=== PATIENT | male | born 1985 | race Caucasian/White ===

== ENCOUNTER 2016-04-24 13:03 | Emergency (ER) | payer OTHER ==
[~2016-04-24] VITALS: Ht 175.2 cm; Wt 90.7 kg
[~2016-04-24 13:03] MED LIST: 'PARAFON FORTE500 M1 PO; ALBUTEROL2.5 MG/0.5 INH; BIAXIN500 MG PO; CLARITIN10 MG PO; COMBIVENT1 ARO IH; DOXYCYCLINE MO100 MG PO; FLOVENT INH; Flovent 220 M220 MCG INH; HYDROCODONE BIT1 T11 PO; KEFLEX500 MG PO; MEDROL DOSEPAK4 MG PO; MOBIC15 MG PO; MOTRIN800 MG PO; MUCINEX600 MG PO; NAPROSYN500 MG PO; NEURONTIN100 MG PO; NORCO 325 MG-51 TAB PO; PREDNICOT20 MG PO; PROAIR HFA0.09 MG/AC IH; ROBITUSSIN AC 10 MG/ PO; SINGULAIR10 MG PO; VENTOLIN0.09 MG/AC IH; VIBRAMYCIN100 MG PO; ZITHROMAX Z PA250 MG PO; ZITHROMAX250 MG PO; ZOFRAN ODT4 MG SL; ZYRTEC10 MG PO
[2016-04-24 13:08] VITALS: BP 156/91
[2016-04-24] MEDS ORDERED: NAPROSYN500 MG PO (13:15)
[2016-04-24] MEDS ORDERED: 'PARAFON FORTE500 M1 PO (13:15)
== END 2016-04-24 13:26 | disposition home or self-care (01) ==
LOC: ED 13:03
DX: S29.019A Strain of muscle and tendon of unspecified wall of thorax, initial encounter (principal); R03.0 Elevated blood-pressure reading, without diagnosis of hypertension; Z88.8 Allergy status to other drugs, medicaments and biological substances; Z79.899 Other long term (current) drug therapy; X58.XXXA Exposure to other specified factors, initial encounter; Y93.89 Activity, other specified; Y92.9 Unspecified place or not applicable; Y99.9 Unspecified external cause status

== ENCOUNTER 2016-06-14 10:44 | Emergency (ER) | payer OTHER ==
[2016-06-14 11:01] LABS: BASO % 0.3 % (0.0-1.0); EOS # 0.1 10*3/uL (0.0-0.4); EOS % 0.8 % (1.0-4.0); HEMOGLOBIN 16.8 g/dl (14.0-18.0); IG # 0.1 10*3/uL (0.0-0.1); LYMPH # 0.7 10*3/uL (1.3-4.4); LYMPH % 5.1 % (27.0-41.0); MEAN CELL VOLUME 85.6 fl (80.0-94.0); MEAN CORPUSCULAR HGB 28.8 pg (27.0-31.0); MEAN CORPUSCULAR HGB CONC 33.6 g/dl (33.0-37.0); MEAN PLATELET VOLUME 9.8 fl (9.6-12.3); MONO # 0.8 10*3/uL (0.1-1.0); MONO % 6.3 % (3.0-9.0); NEUT # 11.4 10*3/uL (2.3-7.9); PLATELET COUNT AUTOMATED 256 10*3/uL (130-400); RED BLOOD COUNT 5.84 10*6/uL (4.50-5.90); WHITE BLOOD COUNT 13.1 10*3/uL (4.8-10.8)
[2016-06-14 11:15] LABS: ALBUMIN 3.8 gm/dl (3.1-4.5); ALKALINE PHOSPHATASE 68 U/L (45-117); BILIRUBIN, TOTAL 0.6 mg/dl (0.2-1.0); BUN 17 mg/dl (7-24); C-REACTIVE PROTEIN 0.98 MG/DL (0-0.3); CARBON DIOXIDE 27 mmol/L (21-32); CHLORIDE 108 mmol/L (98-107); EST GLOM FILT AFRICAN AMERICAN > 60 ml/min; GLUCOSE 105 mg/dL (65-99); MAGNESIUM 2.2 mg/dL (1.5-2.1); POTASSIUM 4.3 mmol/L (3.5-5.1); SGOT/AST 18 IU/L (3-35); SGPT/ALT 37 U/L (12-78); SODIUM 142 mmol/L (136-145); TOTAL PROTEIN 7.9 gm/dL (6.4-8.2)
[2016-06-14] MEDS ORDERED: PHENERGAN25 M3 PO (13:46)
== END 2016-06-14 13:48 | disposition home or self-care (01) ==
LOC: ED 10:44
PROVIDERS: Emergency Medicine
DX: K52.9 Noninfective gastroenteritis and colitis, unspecified (principal); Z79.899 Other long term (current) drug therapy; Z88.8 Allergy status to other drugs, medicaments and biological substances

== ENCOUNTER → 2016-07-10 | Outpatient (CLI) | payer OTHER ==
[~2016-07-10] MED LIST changes: +PHENERGAN25 M3 PO
== END | disposition home or self-care (01) ==
LOC: RAD 13:32
DX: M54.31 Sciatica, right side (principal); R20.2 Paresthesia of skin; G89.29 Other chronic pain; M79.604 Pain in right leg; M79.605 Pain in left leg

== ENCOUNTER 2017-06-26 09:02 | Emergency (ER) | payer BC, OTHER ==
[~2017-06-26] VITALS: Wt 104.3 kg
[2017-06-26] MEDS ORDERED: NAPROSYN500 MG PO (12:07)
[2017-06-26] MEDS ORDERED: MEDROL DOSEPAK4 MG PO (12:07)
[2017-06-26] MEDS ORDERED: CYCLOBENZAPRINE10 MG PO (12:07)
[2017-06-26 12:13] VITALS: BP 138/71
== END 2017-06-26 12:17 | disposition home or self-care (01) ==
LOC: ED 09:02
DX: S39.012A Strain of muscle, fascia and tendon of lower back, initial encounter (principal); S16.1XXA Strain of muscle, fascia and tendon at neck level, initial encounter; Z79.899 Other long term (current) drug therapy; Z88.8 Allergy status to other drugs, medicaments and biological substances; Z88.6 Allergy status to analgesic agent; W01.198A Fall on same level from slipping, tripping and stumbling with subsequent striking against other object, initial encounter; Y93.51 Activity, roller skating (inline) and skateboarding; Y92.89 Other specified places as the place of occurrence of the external cause; Y99.9 Unspecified external cause status

== ENCOUNTER 2017-12-10 17:03 | Emergency (ER) | payer BC, OTHER ==
[~2017-12-10] VITALS: Ht 175.2 cm; Wt 104.3 kg
[~2017-12-10 17:03] MED LIST changes: +CYCLOBENZAPRINE10 MG PO
[2017-12-10 17:06] VITALS: BP 132/90
[2017-12-10 17:47] LABS: BASO # 0.1 10*3/uL (0.0-0.1); BASO % 0.8 % (0.0-1.0); EOS # 0.2 10*3/uL (0.0-0.4); EOS % 2.4 % (1.0-4.0); HEMATOCRIT 46.7 % (42.0-52.0); HEMOGLOBIN 15.9 g/dl (14.0-18.0); LYMPH # 2.4 10*3/uL (1.3-4.4); LYMPH % 26.9 % (27.0-41.0); MEAN CELL VOLUME 83.5 fl (80.0-94.0); MEAN CORPUSCULAR HGB 28.4 pg (27.0-31.0); MEAN PLATELET VOLUME 10.2 fl (9.6-12.3); MONO # 0.8 10*3/uL (0.1-1.0); MONO % 9.3 % (3.0-9.0); NEUT # 5.4 10*3/uL (2.3-7.9); NEUT % 59.9 % (47.0-73.0); PLATELET COUNT AUTOMATED 276 10*3/uL (130-400); RED BLOOD COUNT 5.59 10*6/uL (4.50-5.90); RED CELL DISTRI WIDTH 12.5 % (0-14.5)
[2017-12-10 18:04] LABS: ALBUMIN 3.8 gm/dl (3.1-4.5); ALKALINE PHOSPHATASE 75 U/L (45-117); BUN 16 mg/dl (7-24); CHLORIDE 104 mmol/L (98-107); POTASSIUM 3.8 mmol/L (3.5-5.1); SGOT/AST 18 IU/L (3-35); SGPT/ALT 41 U/L (12-78); SODIUM 139 mmol/L (136-145); TOTAL PROTEIN 7.7 gm/dL (6.4-8.2)
[2017-12-10] MEDS ORDERED: PREDNISONE50 MG PO (19:30)
[2017-12-10] MEDS ORDERED: ROBAXIN500 M1 PO (19:30)
[2017-12-10] MEDS ORDERED: NAPROSYN500 MG PO (19:30)
== END 2017-12-10 19:26 | disposition home or self-care (01) ==
LOC: ED 17:03
PROVIDERS: Nurse Practitioner Family
DX: R51 Headache (principal); M43.6 Torticollis; M25.512 Pain in left shoulder; Z88.8 Allergy status to other drugs, medicaments and biological substances; Z79.899 Other long term (current) drug therapy

== ENCOUNTER 2019-03-05 18:45 | Emergency (ER) | payer OTHER ==
[~2019-03-05] VITALS: Ht 175.2 cm; Wt 104.3 kg
[~2019-03-05 18:45] MED LIST changes: +PREDNISONE50 MG PO; +ROBAXIN500 M1 PO
[2019-03-05 18:46] VITALS: BP 127/84
[2019-03-05] MEDS ORDERED: PREDNISONE50 MG PO (20:10)
[2019-03-05] MEDS ORDERED: AVPAK AZITHROM250 MG PO (20:10)
[2019-03-05] MEDS ORDERED: ROBITUSSIN DM 101 OZ PO (20:10)
[2019-03-05] MEDS ORDERED: PROVENTIL HFA6.7 GM INH (20:10)
== END 2019-03-05 20:14 | disposition home or self-care (01) ==
LOC: ED 18:45
DX: J20.9 Acute bronchitis, unspecified (principal); Z88.8 Allergy status to other drugs, medicaments and biological substances; Z79.899 Other long term (current) drug therapy

== ENCOUNTER → 2020-03-26 | Outpatient (CLI) | payer BC ==
[~2020-03-26] MED LIST changes: +AVPAK AZITHROM250 MG PO; +PROVENTIL HFA6.7 GM INH; +ROBITUSSIN DM 101 OZ PO
== END | disposition home or self-care (01) ==
LOC: COVID19 15:59
PROVIDERS: ATTEND Nurse Practitioner Adult Health
DX: U07.1 COVID-19 (principal)

== ENCOUNTER → 2021-04-11 | Outpatient (CLI) | payer BC | END | disposition home or self-care (01) | LOC: COVID19 15:53 | PROVIDERS: ATTEND Internal Medicine | DX: U07.1 COVID-19 (principal) ==

== ENCOUNTER → 2021-04-12 | Outpatient (CLI) | payer BC | END | disposition home or self-care (01) | LOC: RAD 12:25 | PROVIDERS: ATTEND Family Medicine | DX: J20.9 Acute bronchitis, unspecified (principal) ==

== ENCOUNTER 2022-03-18 14:56 | Emergency (ER) | payer OTHER ==
[~2022-03-18] VITALS: Wt 117.9 kg
[2022-03-18 15:04] VITALS: BP 156/90
[2022-03-18] MEDS ORDERED: MEDROL DOSEPAK4 MG PO (18:45)
[2022-03-18] MEDS ORDERED: BENZONATATE100 M1 PO (18:45)
== END 2022-03-18 18:57 | disposition home or self-care (01) ==
LOC: ED 14:56
DX: R05.9 Cough, unspecified (principal); Z88.8 Allergy status to other drugs, medicaments and biological substances; Z79.899 Other long term (current) drug therapy

== ENCOUNTER → 2022-04-20 | Outpatient (CLI) | payer OTHER ==
[~2022-04-20] MED LIST changes: +BENZONATATE100 M1 PO
[2022-04-20 08:21] LABS: BASO # 0.1 10*3/uL (0.0-0.1); BASO % 0.8 % (0.0-1.0); EOS # 0.3 10*3/uL (0.0-0.4); EOS % 3.3 % (1.0-4.0); LYMPH # 2.1 10*3/uL (1.3-4.4); LYMPH % 27.6 % (27.0-41.0); MEAN CELL VOLUME 86.3 fl (80.0-94.0); MEAN CORPUSCULAR HGB 28.4 pg (27.0-31.0); MEAN CORPUSCULAR HGB CONC 32.9 g/dl (33.0-37.0); MEAN PLATELET VOLUME 9.8 fl (9.6-12.3); MONO # 0.5 10*3/uL (0.1-1.0); MONO % 6.9 % (3.0-9.0); NEUT # 4.6 10*3/uL (2.3-7.9); NEUT % 60.5 % (47.0-73.0); PLATELET COUNT AUTOMATED 295 10*3/uL (130-400); RED BLOOD COUNT 5.56 10*6/uL (4.50-5.90); RED CELL DISTRI WIDTH 12.7 % (0-14.5); WHITE BLOOD COUNT 7.5 10*3/uL (4.8-10.8)
[2022-04-20 11:07] LABS: VITAMIN D, 25-HYDROXY 18.4 ng/mL (30-100)
[2022-04-20 12:28] LABS: ALKALINE PHOSPHATASE 72 U/L (46-116); BUN 17 mg/dl (9-23); CHLORIDE 104 mmol/L (98-107); CHOLESTEROL 193 mg/dL (<200); LDL CHOLESTEROL 114 mg/dL (9-159); SGPT/ALT 30 U/L (10-49); THYROID STIM HORMONE (HS) 2.151 uIU/ml (0.550-4.780); TOTAL PROTEIN 7.4 gm/dL (6.0-8.0); TRIGLYCERIDES 179 mg/dl (<150)
[2022-04-21 08:06] LABS: CREATININE,URINE 133.8 mg/dL (Not Estab.)
== END | disposition home or self-care (01) ==
LOC: LAB 07:44
PROVIDERS: ATTEND Internal Medicine
DX: I10 Essential (primary) hypertension (principal)

== ENCOUNTER 2022-08-03 12:41 | Emergency (ER) | payer OTHER ==
[~2022-08-03] VITALS: Wt 113.4 kg
[2022-08-03 12:52] VITALS: BP 125/77
[2022-08-03] MEDS ORDERED: LISINOPRIL10 M1 PO (13:02)
[2022-08-03] MEDS ORDERED: PHENTERMINE H37.5 M3 PO (13:02)
[2022-08-03] MEDS ORDERED: HYDROCHLOROTH12.5 M2 PO (13:02)
[2022-08-03 13:17] LABS: BASO # 0.1 10*3/uL (0.0-0.1); BASO % 0.7 % (0.0-1.0); EOS # 0.2 10*3/uL (0.0-0.4); EOS % 2.1 % (1.0-4.0); HEMATOCRIT 43.3 % (42.0-52.0); LYMPH # 2.3 10*3/uL (1.3-4.4); LYMPH % 31.6 % (27.0-41.0); MEAN CELL VOLUME 85.1 fl (80.0-94.0); MEAN CORPUSCULAR HGB 29.3 pg (27.0-31.0); MEAN CORPUSCULAR HGB CONC 34.4 g/dl (33.0-37.0); MEAN PLATELET VOLUME 9.9 fl (9.6-12.3); MONO # 0.6 10*3/uL (0.1-1.0); MONO % 7.7 % (3.0-9.0); NEUT # 4.1 10*3/uL (2.3-7.9); NEUT % 57.5 % (47.0-73.0); PLATELET COUNT AUTOMATED 281 10*3/uL (130-400); RED BLOOD COUNT 5.09 10*6/uL (4.50-5.90); RED CELL DISTRI WIDTH 12.5 % (0-14.5); WHITE BLOOD COUNT 7.1 10*3/uL (4.8-10.8)
[2022-08-03 13:28] LABS: ACT PARTIAL THROMBO TIME 27.9 SECONDS (20.0-32.1)
[2022-08-03 13:34] LABS: ALKALINE PHOSPHATASE 65 U/L (46-116); BUN 11 mg/dl (9-23); CHLORIDE 106 mmol/L (98-107); POTASSIUM 3.7 mmol/L (3.4-5.1); SGPT/ALT 20 U/L (10-49); TOTAL PROTEIN 7.3 gm/dL (6.0-8.0)
== END 2022-08-03 15:21 | disposition home or self-care (01) ==
LOC: ED 12:41
PROVIDERS: Nurse Practitioner Family
DX: R07.9 Chest pain, unspecified (principal); T50.5X5A Adverse effect of appetite depressants, initial encounter; I10 Essential (primary) hypertension; Z88.8 Allergy status to other drugs, medicaments and biological substances; Z79.899 Other long term (current) drug therapy; Y92.89 Other specified places as the place of occurrence of the external cause

== ENCOUNTER 2022-09-03 17:42 | Emergency (ER) | payer OTHER ==
[~2022-09-03] VITALS: Wt 108.9 kg
[~2022-09-03 17:42] MED LIST changes: +HYDROCHLOROTH12.5 M2 PO; +LISINOPRIL10 M1 PO; +PHENTERMINE H37.5 M3 PO
[2022-09-03 17:52] VITALS: BP 129/84
[2022-09-03] MEDS ORDERED: CYCLOBENZAPRINE10 MG PO (21:00)
[2022-09-03] MEDS ORDERED: MEDROL DOSEPAK4 MG PO (21:00)
== END 2022-09-03 21:31 | disposition home or self-care (01) ==
LOC: ED 17:42
DX: S00.81XA Abrasion of other part of head, initial encounter (principal); M54.9 Dorsalgia, unspecified; M62.830 Muscle spasm of back; R11.0 Nausea; M54.2 Cervicalgia; R07.81 Pleurodynia; Z88.8 Allergy status to other drugs, medicaments and biological substances; Z79.899 Other long term (current) drug therapy; Z96.22 Myringotomy tube(s) status; V43.63XA Car passenger injured in collision with pick-up truck in traffic accident, initial encounter; Y93.89 Activity, other specified; Y92.488 Other paved roadways as the place of occurrence of the external cause; Y99.8 Other external cause status

== ENCOUNTER → 2022-10-08 | Outpatient (CLI) | payer OTHER | END | disposition home or self-care (01) | LOC: MRI 00:12 | PROVIDERS: ATTEND Occupational Therapist | DX: M51.87 Other intervertebral disc disorders, lumbosacral region (principal); M48.07 Spinal stenosis, lumbosacral region; M47.812 Spondylosis without myelopathy or radiculopathy, cervical region; M48.02 Spinal stenosis, cervical region ==

== ENCOUNTER → 2023-02-15 | Outpatient (CLI) | payer OTHER | END | disposition home or self-care (01) | LOC: RAD 09:35 | PROVIDERS: ATTEND Family Medicine | DX: M25.562 Pain in left knee (principal) ==

== ENCOUNTER 2023-03-06 13:45 | Emergency (ER) | payer OTHER ==
[~2023-03-06] VITALS: Ht 175.2 cm; Wt 108.9 kg
[2023-03-06 13:50] VITALS: BP 138/88
[2023-03-06] MEDS ORDERED: AMOX-CLAV 875-1 EACH PO (14:17)
== END 2023-03-06 14:27 | disposition home or self-care (01) ==
LOC: ED 13:45
DX: H66.93 Otitis media, unspecified, bilateral (principal); F32.A Depression, unspecified; J45.909 Unspecified asthma, uncomplicated; Z88.8 Allergy status to other drugs, medicaments and biological substances; Z98.890 Other specified postprocedural states; Z87.891 Personal history of nicotine dependence

== ENCOUNTER 2023-03-31 09:14 | Emergency (ER) | payer OTHER ==
[~2023-03-31] VITALS: Ht 175.2 cm; Wt 108.9 kg
[~2023-03-31 09:14] MED LIST changes: +AMOX-CLAV 875-1 EACH PO
[2023-03-31 09:30] VITALS: BP 146/85
[2023-03-31] MEDS ORDERED: NEURONTIN300 MG PO (09:47)
[2023-03-31] MEDS ORDERED: TAMIFLU30 MG PO (09:47)
[2023-03-31] MEDS ORDERED: ZITHROMAX250 MG PO (12:15)
[2023-03-31] MEDS ORDERED: PREDNISONE50 MG PO (12:15)
== END 2023-03-31 12:28 | disposition home or self-care (01) ==
LOC: ED 09:14
DX: J45.909 Unspecified asthma, uncomplicated (principal); F32.A Depression, unspecified; Z88.8 Allergy status to other drugs, medicaments and biological substances; Z98.890 Other specified postprocedural states; Z20.822 Contact with and (suspected) exposure to COVID-19

== ENCOUNTER 2023-05-14 18:53 | Emergency (ER) | payer OTHER ==
[~2023-05-14 18:53] MED LIST changes: +NEURONTIN300 MG PO; +TAMIFLU30 MG PO
== END 2023-05-14 19:18 | disposition left against medical advice (07) ==
LOC: ED 18:53
DX: H92.01 Otalgia, right ear (principal); R51.9 Headache, unspecified; Z88.8 Allergy status to other drugs, medicaments and biological substances; Z53.21 Procedure and treatment not carried out due to patient leaving prior to being seen by health care provider

== ENCOUNTER 2023-05-15 15:55 | Emergency (ER) | payer OTHER ==
[~2023-05-15] VITALS: Ht 175.2 cm; Wt 111.1 kg
[2023-05-15 16:25] VITALS: BP 129/79
[2023-05-15 17:42] LABS: BASO # 0.1 10*3/uL (0.0-0.1); BASO % 0.7 % (0.0-1.0); EOS # 0.2 10*3/uL (0.0-0.4); EOS % 1.8 % (1.0-4.0); HEMATOCRIT 48.6 % (42.0-52.0); LYMPH # 2.4 10*3/uL (1.3-4.4); LYMPH % 19.3 % (27.0-41.0); MEAN CELL VOLUME 86.6 fl (80.0-94.0); MEAN CORPUSCULAR HGB 28.3 pg (27.0-31.0); MEAN CORPUSCULAR HGB CONC 32.7 g/dl (33.0-37.0); MEAN PLATELET VOLUME 9.8 fl (9.6-12.3); MONO # 0.9 10*3/uL (0.1-1.0); MONO % 7.2 % (3.0-9.0); NEUT # 8.5 10*3/uL (2.3-7.9); NEUT % 69.1 % (47.0-73.0); PLATELET COUNT AUTOMATED 315 10*3/uL (130-400); RED BLOOD COUNT 5.61 10*6/uL (4.50-5.90); RED CELL DISTRI WIDTH 12.5 % (0-14.5); WHITE BLOOD COUNT 12.2 10*3/uL (4.8-10.8)
[2023-05-15 18:01] LABS: BUN 13 mg/dl (9-23); CHLORIDE 102 mmol/L (98-107); POTASSIUM 3.7 mmol/L (3.4-5.1)
[2023-05-15 18:24] LABS: BILIRUBIN Negative (Negative); BLOOD Negative (Negative); CLARITY Clear (Clear); COLOR Yellow (Yellow); GLUCOSE Negative (Negative); KETONE Negative (Negative); LEUKO ESTERASE Negative (Negative); NITRITE Negative (Negative); PH 5.5 (4.5-8.0); SPECIFIC GRAVITY <= 1.005 (1.001-1.030); UROBILINOGEN 0.2 E.U./dl (0.0-1.0)
== END 2023-05-15 20:37 | disposition home or self-care (01) ==
LOC: ED 15:55
PROVIDERS: Physician Assistant Medical
DX: R20.0 Anesthesia of skin (principal); M54.9 Dorsalgia, unspecified; F32.A Depression, unspecified; J45.909 Unspecified asthma, uncomplicated; Z88.8 Allergy status to other drugs, medicaments and biological substances; Z98.890 Other specified postprocedural states

== ENCOUNTER → 2023-07-21 | Outpatient (CLI) | payer OTHER | END | disposition home or self-care (01) | LOC: RAD 17:35 | PROVIDERS: ATTEND Internal Medicine | DX: M43.8X6 Other specified deforming dorsopathies, lumbar region (principal); M25.78 Osteophyte, vertebrae; M43.16 Spondylolisthesis, lumbar region ==

== ENCOUNTER → 2023-08-05 | Outpatient (CLI) | payer OTHER | END | disposition home or self-care (01) | LOC: MRI 01:23 | PROVIDERS: ATTEND Internal Medicine | DX: S32.009A Unspecified fracture of unspecified lumbar vertebra, initial encounter for closed fracture (principal); M47.816 Spondylosis without myelopathy or radiculopathy, lumbar region; X58.XXXA Exposure to other specified factors, initial encounter; Y93.89 Activity, other specified; Y92.89 Other specified places as the place of occurrence of the external cause; Y99.8 Other external cause status ==

== ENCOUNTER 2024-01-11 13:23 | Emergency (ER) | payer OTHER ==
[~2024-01-11] VITALS: Ht 175.2 cm; Wt 113.4 kg
[2024-01-11 13:38] VITALS: BP 130/89
[2024-01-11] MEDS ORDERED: Albuterol Sulfate 2.5 MG/3 ML VIAL NEB ONE (13:45)
[2024-01-11] MEDS ORDERED: predniSONE 20 MG TAB PO ONE (13:50)
[2024-01-11] MEDS ORDERED: PREDNISONE20 M1 PO (13:55)
[2024-01-11] MEDS ORDERED: AVPAK AZITHROM250 M1 PO (13:55)
== END 2024-01-11 14:20 | disposition home or self-care (01) ==
LOC: ED 13:23
DX: J45.901 Unspecified asthma with (acute) exacerbation (principal); I10 Essential (primary) hypertension; F32.A Depression, unspecified; Z88.8 Allergy status to other drugs, medicaments and biological substances; Z98.890 Other specified postprocedural states

== ENCOUNTER 2024-02-26 20:26 | Emergency (ER) | payer MEDICAID ==
[~2024-02-26] VITALS: Ht 175.2 cm; Wt 113.4 kg
[~2024-02-26 20:26] MED LIST changes: +AVPAK AZITHROM250 M1 PO; +PREDNISONE20 M1 PO
[2024-02-26 20:36] VITALS: BP 134/82
[2024-02-26] MEDS ORDERED: PREDNISONE50 MG PO (20:48)
[2024-02-26] MEDS ORDERED: methylPREDNISolone sod succ 1,000 MG/16 ML VIAL IM ONE (20:50)
[2024-02-26] MEDS ORDERED: CLOBETASOL PROPIONATE 30 GM TUBE T ONE (20:55)
[2024-02-26] MEDS ORDERED: methylPREDNISolone sod succ 125 MG VIAL IM ONE (21:05)
[2024-02-26] MEDS ORDERED: CLOBETASOL PROP15 GM T (21:41)
[2024-02-27] MEDS ORDERED: CLOBETASOL PROPIONATE 30 GM TUBE T SCH (10:00)
== END 2024-02-26 21:42 | disposition home or self-care (01) ==
LOC: ED 20:26
DX: L25.9 Unspecified contact dermatitis, unspecified cause (principal); H57.89 Other specified disorders of eye and adnexa; F32.A Depression, unspecified; J45.909 Unspecified asthma, uncomplicated; Z88.8 Allergy status to other drugs, medicaments and biological substances; Z98.890 Other specified postprocedural states

== ENCOUNTER 2025-03-07 11:46 | Emergency (ER) | payer MEDICARE ==
[~2025-03-07 11:46] MED LIST changes: +CLOBETASOL PROP15 GM T
[2025-03-07 12:02] VITALS: BP 155/82
[2025-03-07] MEDS ORDERED: ZITHROMAX250 MG PO (13:53)
[2025-03-07] MEDS ORDERED: AZITHROMYCIN 250 MG TAB PO ONE (13:55)
== END 2025-03-07 14:23 | disposition home or self-care (01) ==
LOC: ED 11:46
DX: J20.9 Acute bronchitis, unspecified (principal); J45.909 Unspecified asthma, uncomplicated; F32.A Depression, unspecified; Z88.8 Allergy status to other drugs, medicaments and biological substances; Z20.822 Contact with and (suspected) exposure to COVID-19